=== PATIENT | female | born 1985 | race Caucasian/White ===

== ENCOUNTER 2017-07-07 01:57 | Emergency (ER) | payer BC ==
[~2017-07-07] VITALS: Ht 170.2 cm; Wt 86.8 kg
[~2017-07-07 01:57] MED LIST: NO MEDS; TRAMADOL HCL50 MG OR; ULTRAM50 M1 PO; ZITHROMAX250 MG OR; ZPAK PO
[2017-07-07 03:09] LABS: INFLUENZA A NONE DETECTED (NONE DETECT); INFLUENZA B POSITIVE (NONE DETECT)
[2017-07-07] MEDS ORDERED: ROBITUSSIN AC10 ML PO (03:13)
[2017-07-07] MEDS ORDERED: NAPROSYN500 MG PO (03:15)
[2017-07-07 03:25] VITALS: BP 126/80
== END 2017-07-07 03:25 | disposition home or self-care (01) | DRG 195 ==
LOC: ED 01:57
PROVIDERS: Emergency Medicine
DX: J10.1 Influenza due to other identified influenza virus with other respiratory manifestations (principal); R05 Cough; R50.9 Fever, unspecified

== ENCOUNTER 2020-04-23 07:12 | Emergency (ER) | payer BC ==
[~2020-04-23] VITALS: Ht 170.2 cm; Wt 90.0 kg
[~2020-04-23 07:12] MED LIST changes: +NAPROSYN500 MG PO; +ROBITUSSIN AC10 ML PO
[2020-04-23] MEDS ORDERED: HYDROCO/APAP1 TA9 PO ×2 (08:12→08:14)
[2020-04-23 08:27] VITALS: BP 137/76
== END 2020-04-23 08:49 | disposition home or self-care (01) | DRG 556 ==
LOC: ED 07:12
PROC: 2W3RX1Z Immobilization of Left Lower Leg using Splint (ICD-10-PCS; principal; 2020-04-23)
DX: M25.572 Pain in left ankle and joints of left foot (principal); W01.0XXA Fall on same level from slipping, tripping and stumbling without subsequent striking against object, initial encounter; Y92.009 Unspecified place in unspecified non-institutional (private) residence as the place of occurrence of the external cause

== ENCOUNTER 2021-09-06 07:56 | Emergency (ER) | payer BC ==
[~2021-09-06] VITALS: Ht 170.2 cm; Wt 100.0 kg
[~2021-09-06 07:56] MED LIST changes: +HYDROCO/APAP1 TA9 PO
[2021-09-06] MEDS ORDERED: CIPROFLOXACN500 MG PO (08:51)
[2021-09-06] MEDS ORDERED: CIPRODEX1 ML OT (08:51)
[2021-09-06] MEDS ORDERED: HYDROCO/APAP1 TA9 PO (08:58)
[2021-09-06 09:19] VITALS: BP 136/88
== END 2021-09-06 09:30 | disposition home or self-care (01) | DRG 156 ==
LOC: ED 07:56
DX: H60.311 Diffuse otitis externa, right ear (principal); F17.200 Nicotine dependence, unspecified, uncomplicated